=== PATIENT | female | born 1965 ===

== ENCOUNTER 2016-11-16 00:12 | Emergency (ER) | payer OTHER, MEDICAID ==
[2016-11-16 00:24] VITALS: TEMP 98
[2016-11-16] MEDS ORDERED: Naproxen 550 mg Tab PO STA (00:37)
[2016-11-16] MEDS ORDERED: Naproxen 550 mg Tab PO ONE (00:45)
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
[2016-11-16 02:12] VITALS: BP 130/70; PULSE 70; RESP 14
[2016-11-16 03:10] VITALS: O2SAT 100
--- NOTE | 2016-11-16 09:05 | RAD ---
PROCEDURE: Radiographs of the Lumbar Spine. HISTORY: pain COMPARISON: No prior. FINDINGS: BONES: No compressive deformity. Facet arthropathy of the lumbar spine. DISC SPACES: Loss L5-S1 disc space. OTHER FINDINGS: Possible anterior abdominal mesh. IMPRESSION: No compressive deformity. Further imaging can be obtained as per clinical indications.
== END 2016-11-16 02:12 | disposition home or self-care (01) ==
LOC: C.ER 00:12
DX: S39.012A Strain of muscle, fascia and tendon of lower back, initial encounter (principal); V89.2XXA Person injured in unspecified motor-vehicle accident, traffic, initial encounter